=== PATIENT | male | born 1970 | race Caucasian/White ===

== ENCOUNTER 2019-11-27 08:28 | Outpatient (CLI) | payer BC, SELFPAY ==
--- NOTE | 2019-11-27 09:09 | ECG_ITS ---
NAME OF STUDY: EXERCISE SESTAMIBI STRESS TEST INDICATION: Fatigue; Malaise PROCEDURE: The baseline electrocardiogram showed normal sinus rhythm with normal ST-Ts. At the baseline, the patient's blood pressure was 129/99 mm Hg with a heart rate of 72. The patient exercised for 9 minutes on a standard Damian protocol. Patient attained a maximum heart rate of 146 beats per minute(85 % of the maximum predicted heart rate) with a blood pressure at the peak exercise of 200/85 mm Hg. The EKG at the peak exercise revealed no significant changes. Patient did not have any chest pain or any significant arrhythmis with the exercise Sestamibi was injected 1 minute prior to the peak exercise During the recovery phase, there were no new changes. Blood pressure at the end of the recovery phase was 132/81 mm Hg with a heart rate of 96 per minute. CONCLUSION: 1. No significant EKG changes with the [treadmill exercise 2. No exercise-induced chest pain or cardiac arrhythmia. Hypertensive response to exercise 3. Good impaired exercise tolerance, attained a maximum of METs 4. Sestamibi/Sestamibi perfusion results pending; see separate report. Electronically Signed On 11-30-2019 6:54:55 CDT by Meme Jamil M.D. [email or web address]
[2019-11-27 09:11] VITALS: BMI 33.2
--- NOTE | 2019-11-27 10:21 | NMCV_ITS ---
NM deana perf SPECT r/s* [id number] Toni Lopez Age: 49 Gender: M : 1970 Exam Date: 11/27/2019 10:21 Ordering Phys: Enrique Garrett NP Technologist: VIKASH Leyva Exam Location: [facility] Indications: FATIGUE AND MALAISE STRESS TEST Please see separate stress test report in [facility] for full findings IMAGE PROTOCOL Rest/Stress 1 Exercise Day Radiopharmaceutical Dose (mCi) Administration Site Administered by Rest: Tc-99m 10.6 IV VIKASH Leyva Sestamibi Stress:Tc-99m 32.3 IV VIKASH Garcia Sestamibi Rest: 27-Nov-2019 60 Discovery 630 Stress: 27-Nov-2019 15 Discovery 630 Radiopharmaceutical was injected at 85 % maximum heart rate. Images obtained in supine and prone position. SPECT RESULTS Technical Quality: Excellent Raw Data Analysis: Normal Image Corrections: No attenuation or motion correction applied Summed Stress Score: 0 Summed Rest Score: 0 Summed Difference Score: 0 PERFUSION FINDINGS Uniform myocardial tracer uptake with no significant perfusion normalities FUNCTIONAL RESULTS (calculated via Gated SPECT) Stress Image LV EF (%): 56 Stress EDV (mL):108 TID: 0.85 Stress ESV (mL):48 FUNCTIONAL FINDINGS: Segmental wall motion analysis revealing no gross wall motion normalities IMPRESSIONS 1. Unremarkable myocardial perfusion imaging. 2. Normal LV ejection fraction of 56%. 3. LV wall motion analysis revealing no gross wall motion normalities. 4. Slightly elevated LV end-systolic volume of 48 mL No significant coronary ischemia, based on the above findings Dr Meme Jamil MD FACC (Electronically Signed) Final Date: 27 November 2019 22:42 S
--- NOTE | 2019-11-27 10:39 | SUR.PREOP ---
Patient reports no pain or discomfort prior to the start of the procedure.
[2019-11-27 11:02] VITALS: BP 132/51; PULSE 98
== END 2019-11-27 08:29 | disposition home or self-care (01) ==
PROVIDERS: Family Provider Nurse Practitioner Family; PCP Nurse Practitioner Family; Visit Provider Nurse Practitioner Family
DX: R53.83 Other fatigue (principal)
CPT/HCPCS: 78452; 93017; A9500